=== PATIENT | male | born 1935 | race African-American/Black ===

== ENCOUNTER → 2016-09-15 | Outpatient (CLI) | payer MEDICARE ==
[~2016-09-15] MED LIST: ANTIVERT PO
--- NOTE | ~2016-09-15 | US5 ---
[facility] A Service of [facility] RADIOLOGY TEXT RESULTS PATIENT: FRANCES BEAVERS LOCATION: [facility] : 34 UNIT #: [id number] AGE: [address]: SANTOS KIM MD SEX: M ORDER DR: [id number] [facility] [address] [place], [place] [address] [id number] O MR#: [id number] Acc #: [id number] NAME: FRANCES BEAVERS : 1935 SEX: M STUDY DATE/TIME: 09/15/2016 11:16 UNIT: [facility] ROOM: STUDY DESCRIPTION: US Abdominal Complete Attending Physician: Santos Kim M.D. Referring Physician: Santos Kim M.D. Ordering Physician: Santos Kim M.D. Primary Care Physician: Santos Kim M.D. MEDICAL IMAGING REPORT This report is preliminary unless electronic signature is present EXAM Abdominal ultrasound INDICATIONS Abnormal liver enzymes. COMPARISON Right upper ultrasound dated 09/09/2015. FINDINGS The pancreas is largely obscured due to overlying bowel gas. There is coarsened echotexture of the hepatic parenchyma. This suggests background intrinsic liver disease such as cirrhosis. The main portal vein is dilated measuring 1.8 cm suggesting portal hypertension. No discrete or suspicious hepatic mass identified. There is a right hepatic cyst which measures 9 mm and is unchanged from prior studies. The gallbladder is diffusely abnormal. There are multiple non shadowing echogenic foci within the gallbladder which probably represents gallbladder sludge. There does appear to be some gallstones as well. There is gallbladder wall thickening. There is abnormal appearance, appears to have been present on prior exams dating back to 2014. The extrahepatic duct is at the upper limits of normal measuring 7 mm in diameter. Right kidney measures 10.2 cm. There is severe renal cortical atrophy and has severe hydronephrosis of the right renal collecting system. 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 The left kidney measures 10 cm. Renal cortical thickness and echogenicity within normal limits. No hydronephrosis. [facility] A Service of [facility] RADIOLOGY TEXT RESULTS PATIENT: FRANCES BEAVERS LOCATION: [facility] : 34 UNIT #: [id number] AGE: [address]: SANTOS KIM MD SEX: M ORDER DR: The spleen is normal in size. 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 This is unchanged from the 2015 comparison. Juxtahepatic IVC is within normal limits. No ascites. IMPRESSION 1. Coarsened echotexture of the hepatic parenchyma suggesting background cirrhosis. 2. Small cyst in the right hepatic lobe. 3. Diffusely abnormal gallbladder with echogenic material and/or debris representing combination of stones and probably gallbladder sludge. This appearance is similar to prior studies. 4. Severe atrophy of the right renal parenchyma with dilated right renal collecting system, unchanged from prior exams. 5. 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 This is unchanged from prior studies. Dictated by... Andry Ribera M.D. THIS IS AN ELECTRONICALLY VERIFIED REPORT Andry Ribera M.D. at 09/16/2016 3:22 PM Audra TD: 09/15/2016 22:41 JOB #: [id number] MEDICAL IMAGING REPORT Page 1 of 1 COPY
== END | disposition home or self-care (01) ==
LOC: CGUS 09:23
DX: R74.8 Abnormal levels of other serum enzymes (principal); K76.89 Other specified diseases of liver; N26.1 Atrophy of kidney (terminal); I77.811 Abdominal aortic ectasia
CPT/HCPCS: 76700